=== PATIENT | female | born 2000 | race Caucasian/White ===

== ENCOUNTER 2025-09-30 13:11 | Emergency (ER) | payer OTHER ==
[~2025-09-30] VITALS: Ht 152.4 cm; Wt 63.0 kg
[2025-09-30] MEDS ORDERED: METHOCARBAMOL 500 MG TAB PO ONE (13:30)
[2025-09-30] MEDS ORDERED: IOHEXOL 300 MG/ML 100 ML VIAL IV ONE (13:30)
[2025-09-30] MEDS ORDERED: IOHEXOL 300 MG/ML 100 ML VIAL ONE (13:55)
[2025-09-30] MEDS ORDERED: NAPROSYN500 MG PO (15:13)
[2025-09-30] MEDS ORDERED: METHOCARBAMOL750 M1 PO (15:13)
== END 2025-09-30 15:33 | disposition home or self-care (01) ==
LOC: ED 13:11
DX: S16.1XXA Strain of muscle, fascia and tendon at neck level, initial encounter (principal); S29.011A Strain of muscle and tendon of front wall of thorax, initial encounter; M62.830 Muscle spasm of back; V89.2XXA Person injured in unspecified motor-vehicle accident, traffic, initial encounter; Y93.89 Activity, other specified; Y92.410 Unspecified street and highway as the place of occurrence of the external cause; Y99.8 Other external cause status